=== PATIENT | male | born 1990 | race Two or more races ===

== ENCOUNTER 2019-01-20 20:58 | Emergency (ER) | payer SELFPAY ==
[2019-01-20 21:03] VITALS: BP 140/81; PULSE 96; TEMP 98.1; BMI 25.8
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
[2019-01-20] MEDS ORDERED: ACETAMINOPHEN 325 MG TABLET (FP) ONE (23:01)
[2019-01-20] MEDS ORDERED: ACETAMINOPHEN 325 MG TABLET (FP) PO ONE (23:08)
== END 2019-01-21 00:22 | disposition home or self-care (01) ==
LOC: JER 20:58
DX: S06.0X9A Concussion with loss of consciousness of unspecified duration, initial encounter (principal); S00.83XA Contusion of other part of head, initial encounter; S01.112A Laceration without foreign body of left eyelid and periocular area, initial encounter; Y08.89XA Assault by other specified means, initial encounter; Y93.89 Activity, other specified; Y92.89 Other specified places as the place of occurrence of the external cause; Y99.8 Other external cause status; Y07.9 Unspecified perpetrator of maltreatment and neglect
CPT/HCPCS: 70450-TC; 70486-TC; 99281-25